=== PATIENT | female | born 1975 | race Caucasian/White ===

== ENCOUNTER 2022-05-05 08:47 | Day surgery (SDC) | payer OTHER ==
[2022-04-30 10:29] VITALS: BMI 48.8
--- NOTE | 2022-05-04 13:21 | HP ---
HISTORY AND PHYSICAL DATE OF SURGERY: 05/05/2022 HISTORY OF PRESENT ILLNESS: Ayah Sherman is a 46-year-old individual seen with progressive right knee pain. We discussed options for treatment. Patient elected to proceed with right knee arthroscopy. Consent was obtained. PAST MEDICAL HISTORY: Hypertension. PAST SURGICAL HISTORY: Noncontributory. DAILY MEDICATIONS: Lisinopril. ALLERGIES: None. SOCIAL HISTORY: She denies current tobacco use. PHYSICAL EVALUATION OF THE RIGHT KNEE: Range of motion is -2/3 to 115 degrees. Moderate effusion. Tenderness to medial joint line. Positive medial Jason's. Ligaments stable. Hip rotation is without pain. Distal neurovascular exam is intact. RADIOGRAPHS: Right knee radiographs revealed no osseous abnormality. An MRI of the right knee revealed medial meniscal tear and a large intra-articular effusion. IMPRESSION: 1. Internal derangement of right knee with medial meniscal tear. 2. Hypertension. PLAN: Right knee arthroscopy with partial medial meniscectomy and debridement. MMODL / IJN: [id number] /
[~2022-05-05 08:47] MED LIST: DEXAMETHASONE SOD PHOSPHATE 4 MG/ML 1 ML VIAL IV ONE; HYDROmorphone 0.5 MG/0.5 ML SYRINGE IVP PRN; LACTATED RINGERS 1,000 ML IV SCH; MIDAZOLAM 2 MG/2 ML VIAL IV PRN; ONDANSETRON 4 MG/2 ML VIAL IVP ONE; SCOPOLAMINE 1 MG/72 HR PATCH TRANSDERM ONE
[2022-05-05] MEDS ORDERED: LIDOCAINE 1% (10MG/ML) FOR IV START INTRADERMA ONE (09:44)
[2022-05-05] MEDS ORDERED: MIDAZOLAM 2 MG/2 ML VIAL ONE (10:40)
[2022-05-05] MEDS ORDERED: fentaNYL (PF) 50 MCG/ML 2 ML AMP ONE (10:40)
[2022-05-05] MEDS ORDERED: SUCCINYLCHOLINE CHLORIDE 200 MG/10 ML VIAL IV ONE (10:40)
[2022-05-05] MEDS ORDERED: LIDOCAINE 2% INJ 20 MG/ML (2 ML VIAL) ONE (10:40)
[2022-05-05] MEDS ORDERED: PROPOFOL 10 MG/ML 20 ML VIAL IV ONE (10:40)
[2022-05-05] MEDS ORDERED: HYDROmorphone (PF) 1 MG/ML ONE (10:40)
[2022-05-05] MEDS ORDERED: SODIUM CHLORIDE 0.9% 150 ML with ceFAZolin 3,000 MG IV ONE ×2 (10:48)
[2022-05-05] MEDS ORDERED: BUPIVACAIN-EPI 0.25%-1:200,000 30 ML VIAL INTRAARTIC ONE (11:11)
--- NOTE | 2022-05-05 11:39 | P.OP ---
Date of Procedure: 05/05/22 Preoperative Diagnosis: Internal derangement right knee Postoperative Diagnosis: 1. Tear medial and lateral meniscus right knee 2. Grade 4 chondromalacia medial femoral condyle right knee 3. Reactive synovitis medial, lateral and suprapatellar compartments right knee Procedure(s) Performed: 1. Arthroscopic partial medial and lateral meniscectomy right knee 2. Arthroscopic microfracture medial femoral condyle right knee 3. Arthroscopic chondroplasty medial femoral condyle right knee 4. Arthroscopic partial synovectomy medial, lateral and suprapatellar compartments right knee Anesthesia: HALEYA, local Surgeon: Gold Enriquez Estimated Blood Loss (ml): 7 Pathology: none sent Condition: stable Disposition: PACU Indications for Procedure: 46-year-old patient seen with progressive right knee pain. After treatment options were discussed, she elected to proceed with arthroscopy. Operative Findings: See description of procedure Description of Procedure: Patient was taken to the operative suite. Patient underwent a general anesthetic by the department of anesthesia. Patient was given preoperative antibiotics. The right lower extremity was placed in a well-padded arthroscopic leg preston. The right leg was prepped and draped in the normal sterile orthopedic fashion. A lateral parapatellar and suprapatellar incision was made. Trochars were inserted. Arthroscopy was initiated. Suprapatellar pouch revea led diffuse thick reactive synovitis. The patellofemoral joint appeared to articulate congruently. There was grade 1/2 chondromalacia of the patella without significant osteochondral tears. The scope was guided into the medial gutter. No loose bodies or plica were identified. The scope was then guided into the medial compartment. A medial parapatellar incision was made. Trocar inserted followed by probe. There was a radial tear posterior horn medial meniscus. There was an area of grade 3 chondromalacia medial femoral condyle with diffuse osteochondral flap tears involving the weightbearing surface. There was some thick reactive synovitis anteriorly. I performed a partial medial meniscectomy getting down to stable meniscal tissue. I performed a chondroplasty of the medial femoral condyle getting down to stable osteochondral tissue. I performed a partial synovectomy decompressing the thick reactive synovitis anteriorly. I did note an area of grade 4 chondromalacia involving the central area medial femoral condyle measuring about 1 cm in diameter. I introduced a microfracture awl and I performed a microfracture to that area penetrating the bone with resultant bleeding at the microfracture site. The residual meniscus was stable. The residual osteochondral surface was stable. There was good decompression of the synovitis. Scope and probe were then guided into the intercondylar notch. Cruciates were identified, probed and found to be stable. The scope and probe were then guided into lateral compartment. There was a radial tear mid body lateral meniscus. There was mild grade 1 chondromalacia changes lateral compartment with no tears. There was some thick reactive synovitis anteriorly. I performed a partial lateral meniscectomy getting down to stable meniscal tissue. I performed a partial synovectomy decompressing the reactive synovitis. The residual meniscus was probed and was found to be stable. There was good decompression of the synovitis. The scope was in guided back into the suprapatellar compartment. I introduced a motorized shaver into the suprapatellar compartment. I performed a partial synovectomy. The shaver was removed. There was good decompression of the synovitis. I now took one more look around the entire knee, no residual debris. Instruments were now removed from the joint. The joint was infiltrated with .25% Marcaine. Steri-Strips were applied to the portal sites. Sterile dressings were applied. The patient was placed into a REYNALDO hose. No tourniquet was utilized. The patient was awakened, transferred to a bed and taken to recovery stable satisfactory condition.
[2022-05-05 11:44] VITALS: TEMP 97
[2022-05-05] MEDS ORDERED: LACTATED RINGERS 1,000 ML IV ONE (11:58)
[2022-05-05 12:52] VITALS: RESP 20
[2022-05-05] MEDS ORDERED: HYDROcodone/APAP 5-325MG 1 EACH TAB ONE (12:57)
[2022-05-05] MEDS ORDERED: HYDROcodone/APAP 5-325MG 1 EACH TAB PO ONE (12:58)
[2022-05-05 13:49] VITALS: BP 107/71; PULSE 76
== END 2022-05-05 14:29 | disposition home or self-care (01) ==
LOC: OR 08:47
PROVIDERS: ATTEND Orthopaedic Surgery
DX: M23.91 Unspecified internal derangement of right knee (principal); S83.281A Other tear of lateral meniscus, current injury, right knee, initial encounter; M22.41 Chondromalacia patellae, right knee; M65.9 Synovitis and tenosynovitis, unspecified; I10 Essential (primary) hypertension; Z79.899 Other long term (current) drug therapy
CPT/HCPCS: 29880; 29879; J2250; J0330; J1100; J2405; J0690; J3010; J1170 ×2; J2704; J2001

== ENCOUNTER → 2024-08-17 | Outpatient (CLI) | payer BC ==
--- NOTE | 2024-08-20 07:37 | MM ---
Reason for Exam: Screening (asymptomatic). Baseline mammogram. Patient History: Menarche at age 8. First Full-Term at age 22. Hysterectomy at age 32. Postmenopausal. Maternal aunt had endometrial cancer. Risk Values: Yolis 5 year model risk: 0.9%. NCI Lifetime model risk: 8.9%. Prior Study Comparison: Patient's first Mammogram. Tissue Density: There are scattered areas of fibroglandular density. Findings: Analyzed By CAD. There is no suspicious group of microcalcifications or new suspicious mass in either breast. Overall Assessment: Negative, BI-RAD 1 Management: Screening Mammogram of both breasts in 1 year. . Patient should continue monthly self-breast exams. A clinical breast exam by your physician is recommended on an annual basis. This exam should not preclude additional follow-up of suspicious palpable abnormalities. Note on Yolis scores and lifetime risk: 1. A Yolis score greater than 3% is considered moderate risk. If this is the case, consider specialist referral to assess eligibility for a risk reducing agent. 2. If overall lifetime risk for the development of breast cancer is 20% or higher, the patient may qualify for future screening with alternating mammogram and breast MRI. [facility], , 08/20/2024 7:35 AM. Electronically signed and approved by: Erlin Jackson M.D. Radiolog[facility]
== END | disposition home or self-care (01) ==
LOC: RADMAMWWP 16:37
PROVIDERS: ATTEND Family Medicine
DX: Z12.31 Encounter for screening mammogram for malignant neoplasm of breast (principal); R92.323 Mammographic fibroglandular density, bilateral breasts; Z78.0 Asymptomatic menopausal state
CPT/HCPCS: 77063; 77067